=== PATIENT | male | born 1980 | race Two or more races ===

== ENCOUNTER 2024-08-17 10:51 | Emergency (ER) | payer MEDICAID, SELFPAY ==
[2024-08-17 10:55] VITALS: BMI 31.9
[2024-08-17 11:06] VITALS: BP 130/84; PULSE 73; RESP 19; TEMP 36.8; O2SAT 98
--- NOTE | 2024-08-17 11:08 | XR_ITS ---
EXAMINATION: US gall bladder ORDERING PROVIDER: JORGE Moreau HISTORY: ruq pain TECHNIQUE: Multiplanar still ultrasonography of the right upper quadrant was performed using grayscale imaging, supplemented by color and spectral Doppler as needed. COMPARISON: None. FINDINGS: Liver: Mild diffuse increased echogenicity. Gallbladder: 3 mm wall at the upper limits of normal. No pericholecystic fluid. No cholelithiasis. Biliary system: No biliary ductal dilatation. Common bile duct: 0.2 cm. Pancreas: Pancreatic head unremarkable. Vascular: Normal hepatopetal flow in the portal vein. Patent IVC. Other: No ascites or mass. IMPRESSION: 1. Gallbladder wall thickness at the upper limits of normal, but without pericholecystic fluid or cholelithiasis. 2. Mild diffuse increased echogenicity of the liver, nonspecific, but can be seen with hepatic steatosis.
--- NOTE | 2024-08-17 11:09 | EDNOTE_ITS ---
ED Abdominal Pain RME/HPI General Chief Complaint: Abdominal Pain Stated complaint: UPPER ABD PAIN/NAUSEA ON/OFF x 8 DAYS Time seen by provider: 08/17/24 10:57 Arrival date/time: 08/17/24 10:51 43-year-old male with no known medical history presents to the emergency room with a chief complaint of right upper abdominal pain, nausea x 8 days. Source: patient Mode of arrival: ambulatory Limitations: no limitations Related Data Previous Rx's ?Medication ?Instructions ?Recorded ondansetron 4 mg disintegrating 4 mg PO Q8H PRN nausea and 08/17/24 tablet vomiting #14 tabs Allergies Allergy/AdvReac Type Severity Reaction Status Date / Time No Known Allergies Allergy Verified 08/17/24 10:57 Review of Systems Review of Systems Systems Reviewed: All systems reviewed, normal except as documented Constitutional Constitutional: Reports system reviewed and no additional complaints, except as documented, Denies fatigue, Denies fever(s), Denies headache(s) and Denies weakness Eyes Eyes: Reports system reviewed and no additional complaints, except as documented, Denies blurry vision and Denies change in vision ENT Ears, Nose, Mouth, and Throat: Reports system reviewed and no additional complaints, except as documented, Denies otalgia, Denies headache(s), Denies nasal congestion, Denies throat swelling and Denies vertigo Cardiovascular Cardiovascular: Reports system reviewed and no additional complaints, except as documented, Denies chest pain, Denies dyspnea and Denies dyspnea on exertion Respiratory Respiratory: Reports system reviewed and no additional complaints, except as documented, Denies chest congestion, Denies cough, Denies dyspnea, Denies dyspnea on exertion and Denies wheezing Gastrointestinal Gastrointestinal: Reports system reviewed and no additional complaints, except as documented, Reports abdominal pain, Reports cramping, Reports nausea and Reports vomiting Genitourinary Genitourinary: Reports system reviewed and no additional complaints, except as documented, Denies dysuria and Denies hematuria Musculoskeletal Musculoskeletal: Reports system reviewed and no additional complaints, except as documented and Denies back pain Integumentary/Breasts Skin/Breast: Reports system reviewed and no additional complaints, except as documented and Denies wounds Neurologic Neurologic: Reports system reviewed and no additional complaints, except as documented, Denies confusion, Denies headache(s), Denies lack of coordination, Denies vertigo and Denies weakness Psychiatric Psychiatric: Reports system reviewed and no additional complaints, except as documented, Denies anxiety, Denies confusion, Denies depression, Denies paranoia, Denies suicidal ideation and Denies tactile hallucinations Endocrine Endocrine: Reports system reviewed and no additional complaints, except as documented and Denies fatigue Hematologic/Lymphatic Hematologic/Lymphatic: Reports system reviewed and no additional complaints, except as documented and Denies lymphadenopathy Allergic/Immunologic Allergic/Immunologic: Reports system reviewed and no additional complaints, except as documented, Denies throat swelling, Denies urticaria and Denies wheezing Past Medical History Social History SMOKING STATUS: Never smoker ED Exam General Limitations: Present no limitations General appearance: Present alert and in no apparent distress Head Head exam: Present atraumatic Eye Eye exam: Present normal appearance, PERRL and EOMI ENT ENT exam: Present normal exam, normal oropharynx and mucous membranes moist Neck Neck exam: Present normal inspection, full ROM and trachea midline Chest Chest inspection: Present normal inspection and symmetric chest wall rise Respiratory Respiratory exam: Present normal lung sounds bilaterally; Absent respiratory distress, wheezes, stridor, accessory muscle use or prolonged expiratory phase Cardiovascular Cardiovascular exam: Present regular rate, normal rhythm and normal heart sounds Abdominal Exam Abdominal exam: Present soft, tenderness and normal bowel sounds; Absent Colon's sign Abdominal tenderness: Present RUQ, epigastrium and mild Extremities Exam Extremities exam: Present normal inspection and full ROM Back Exam Back exam: Present normal inspection and full ROM Neurological Exam Neurological exam: Present alert, oriented X3 and CN II-XII intact Psychiatric Psychiatric exam: Present normal affect and normal mood Skin Skin exam: Present warm, dry, intact and normal color Course Quality Measures none Orders Category Date Time Status US gall bladder Stat Exams 08/17/24 11:08 Completed CBC Stat Lab 08/17/24 11:20 Completed CMP [Comprehensive Metabolic Panel] Stat Lab 08/17/24 11:20 Completed Lipase Stat Lab 08/17/24 11:20 Completed UA [Urinalysis] Stat Lab 08/17/24 11:15 Completed Urine Culture Stat Lab 08/17/24 11:15 Received HYDROcodone*/APAP 5/325 [[place] 5/325] Med 08/17/24 11:09 Discontinued 1 tab PO X1 ONE Ondansetron Odt [Zofran Odt] Med 08/17/24 11:09 Discontinued 4 mg PO X1 ONE Vital Signs Vital signs: Vital Signs Temperature 98.3 F 08/17/24 11:06 Pulse Rate 73 08/17/24 11:06 Respiratory Rate 19 08/17/24 11:06 Blood Pressure 130/84 08/17/24 11:06 Pulse Oximetry (%) 98 08/17/24 11:06 Oxygen Delivery Method Room Air 08/17/24 11:06 O2 saturation 98% within normal limits Abdominal Pain MDM MDM Narrative MDM Narrative:: 43-year-old male with no known medical history presents to the emergency room with a chief complaint of right upper abdominal pain, nausea x 8 days. Patient is hemodynamically stable and in no apparent distress. Patient is afebrile not tachycardic and not tachypneic. Patient has a soft nontender lower abdominal area. Patient does have some 6 out of 10 abdominal tenderness to the right upper quadrant. The patient has a negative Colon sign. Ultrasound of the gallbladder was completed and was negative for any cholelithiasis or cholecystitis. CBC CMP were negative for any leukocytosis. UA was negative for urinary tract infection Patient was discharged and educated to follow-up with primary care provider and return to the emergency room for any evidence of worsening signs or symptoms Patient data External records reviewed:: [facility] previous records Clinical information provided by:: patient Social determinants that could affect healthcare access:: none Patient has the following chronic illnesses:: No chronic illness How is presenting disease/condition affected by chronic disease/condition?: no chronic disease Evaluation data The following diagnostics were reviewed and interpreted by me:: lab results and radiology exam(s) Lab and/or radiology exams considered but not ordered:: Labs and radiology exams considered and ordered Interpretation Summary: Ultrasound gallbladder-FINDINGS: Liver: Mild diffuse increased echogenicity. Gallbladder: 3 mm wall at the upper limits of normal. No pericholecystic fluid. No cholelithiasis. Biliary system: No biliary ductal dilatation. Common bile duct: 0.2 cm. Pancreas: Pancreatic head unremarkable. Vascular: Normal hepatopetal flow in the portal vein. Patent IVC. Other: No ascites or mass. IMPRESSION: 1. Gallbladder wall thickness at the upper limits of normal, but without pericholecystic fluid or cholelithiasis. 2. Mild diffuse increased echogenicity of the liver, nonspecific, but can be seen with hepatic steatosis. Medications / Prescriptions Medications or Prescriptions considered but not ordered:: Medication given Medication administrations:: Medication Administration History Discontinued Medications Hydrocodone Bitart/Acetaminophen (Hydrocodone/Apap 5/325 Tablet) 1 tab PO X1 ONE Stop: 08/17/24 11:10 Last Admin: 08/17/24 11:33 Dose: 1 tab Documented By: LEXIS Ondansetron HCl (Ondansetron Odt 4 Mg Tabrap) 4 mg PO X1 ONE; Protocol Stop: 08/17/24 11:10 Last Admin: 08/17/24 11:33 Dose: 4 mg Documented By: LEXIS Medication given Consultations Consultation(s) initiated? (list below): No Diagnosis Differential diagnosis abdominal pain: abdominal pain, acute appendicitis, constipation, diverticulitis, gastroenteritis, small bowel obstruction and other (Cholelithiasis/cholecystitis) Most likely diagnosis given after review of the tests above:: Gastroenteritis Admission Indicated Admission indicated?: not indicated Admission Request Was there a request for admission?: No Disposition Plan Disposition Plan: Discharge Discharge Attestation Discharge Attestation: The patient and all family members were given an opportunity to ask questions and understood the discharge instructions. Discharge instructions specifically effects, indications for sooner follow up or return to the emergency department, and the expected course of current diagnosis. Patient condition: Stable Discharge Plan Plan Patient Disposition: HOME (Self Care) Disposition Comment: Stable Prescriptions/Referrals Prescriptions/Med Rec: New ondansetron 4 mg tablet,disintegrating 4 mg PO Q8H PRN (Reason: nausea and vomiting) Qty: 14 0RF Referrals: Yasmin Dominguez PA-C [Primary Care Provider] - In 1 week Problem List Clinical Impression: Gastroenteritis Patient/Caregiver Discharge Instructions Education Materials: ED Gastroenteritis, Noninfectious Additional Instructions: Por favor, consulte con willson m?dico de cabecera en las pr?ximas 24 a 48 horas. Willson an?lisis de man fue negativo para cualquier hallazgo drea. Willson an?lisis de orina fue negativo para cualquier hallazgo drea. Se realiz? marty tomograf?a computarizada de willson abdomen y pelvis y fue negativa para cualquier hallazgo drea. Willson m?dico de cabecera est? haciendo un seguimiento con willson m?dico de cabecera para realizar m?s pruebas para encontrar la causa de willson dolor abdominal. Si hay evidencia de empeoramiento de los signos o s?ntomas, regrese a la miladis de emergencias de inmediato. Print Language: Samoan Stand Alone Forms: Beatriz Award Info., Patient Portal Info Letter PA/DROPHAMMER OPERATOR Supervising Physician PA/DROPHAMMER OPERATOR Supervising Physician: Dr. Amaya
[2024-08-17 11:29] LABS: Collection Type, Urine Clean Catch; Squamous Epithelial Cell,Urine 0 /hpf (0-5)
[2024-08-17] MEDS: ONDANSETRON ODT 4 MG TABRAP PO (11:33)
[2024-08-17] MEDS: HYDROcodone/APAP 5/325 TABLET 1 TAB PO (11:33)
[2024-08-17 11:46] LABS: Basophils % (Auto) 1 % (0-2.5); Eosinophils % (Auto) 0 % (0-10); Hematocrit 43.8 % (41.0-53.0); Hemoglobin 15.4 g/dL (13.5-16.0); Immature Granulocytes % (Auto) 0 % (0-0); Lymphocytes # (Auto) 1.7 Thou/mm3 (1.0-4.8); Lymphocytes % (Auto) 28 % (10-50); Mean Corpuscular HGB Conc 35.2 g/dl (31.0-37.0); Mean Corpuscular Hemoglobin 29.6 pg (25.0-35.0); Mean Corpuscular Volume 84 fL (80-100); Monocytes # (Auto) 0.3 Thou/mm3 (0.0-0.8); Monocytes % (Auto) 5 % (0-12); Neutrophils % (Auto) 66 % (37-80); Nucleated Red Blood Cell % 0 /100 WBC (0); Platelet Count 218 Thou/mm3 (140-440); RDW Standard Deviation 35.8 fL (35.1-43.9)
[2024-08-17 11:47] LABS: Bilirubin,Urine Negative (Negative); Blood,Urine Negative (Negative); Clarity,Urine Clear (Clear/Hazy); Color,Urine Colorless (Lt Yel-Yel); Glucose, Urine Negative (Negative); Ketones,Urine Negative (Negative); Leukocyte Esterase,Urine Negative (Negative); Nitrite,Urine Negative (Negative); PH,Urine 7.5 (5.0-7.0); Protein,Urine Negative (Neg - Trace); RBC,Urine < 1 /hpf (0-3); Specific Gravity,Urine 1.007 (1.001-1.035); Urobilinogen,Urine Negative mg/dL (0.0-1.0); WBC,Urine < 1 /hpf (0-5)
[2024-08-17 11:59] LABS: Alanine Aminotransferase 19 U/L (10-49); Albumin, Serum 4.7 gm/dL (3.5-5.0); Albumin/Globulin Ratio 1.5 (1.2-2.2); Alkaline Phosphatase 95 U/L (46-116); Anion Gap 5 (7-16); Aspartate Amino Transferase 19 U/L (0-34); BUN/Creatinine Ratio 10 Ratio (12-20); Bilirubin,Total 1.2 mg/dL (0.3-1.2); Blood Urea Nitrogen 8 mg/dL (9-23); Calcium 9.5 mg/dL (8.3-10.6); Calcium (Corrected) 9.5 mg/dL (8.5-10.1); Carbon Dioxide 30.6 mMol/L (20.0-31.0); Chloride 105 mMol/L (98-107); Creatinine (Component) 0.8 mg/dL (0.6-1.3); Estimated Creatinine Clearance 122.4 mL/min (>60); Globulin 3.2 gm/dL (2.3-3.5); Glucose 94 mg/dL (74-106); Lipase 39 U/L (12-53); Osmolality,Calculated 279 (275-295); Potassium 4.3 mMol/L (3.4-5.1); Sodium 141 mMol/L (136-145); Total Protein 7.9 gm/dL (5.7-8.2); eGFR > 60 See Note
== END 2024-08-17 13:23 | disposition home or self-care (01) ==
PROVIDERS: Nurse Practitioner Family; Emergency Provider Emergency Medicine
DX: K52.9 Noninfective gastroenteritis and colitis, unspecified (principal)
CPT/HCPCS: 36415; 76705; 80053; 81001; 83690; 85025; 87086; 99284; Q0162; A9270

== ENCOUNTER 2024-09-14 10:03 | Emergency (ER) | payer MEDICAID, SELFPAY ==
[2024-09-14 10:04] VITALS: BMI 31.9
[2024-09-14 10:19] VITALS: BP 124/78; PULSE 79; RESP 16; TEMP 37.1; O2SAT 98
--- NOTE | 2024-09-14 10:22 | PD.EDRME ---
Rapid Medical Screening Exam RME Arrival date/time: 09/14/24 10:03 43-year-old male with no known medical history presents to the emergency room with a chief complaint of right lower quadrant 8 out of 10 abdominal pain, vomiting, diarrhea x 3 days I have greeted and performed a focused initial assessment of this patient. A comprehensive ED assessment and evaluation of the patient, analysis of all test results, and completion of the medical decision making process will be conducted by additional ED providers. Chief Complaint: Abdominal Pain Time Seen by Provider: 09/14/24 10:15 Vital signs: Vital Signs Temperature 98.8 F 09/14/24 10:19 Pulse Rate 79 09/14/24 10:19 Respiratory Rate 16 09/14/24 10:19 Blood Pressure 124/78 09/14/24 10:19 Pulse Oximetry (%) 98 09/14/24 10:19 Oxygen Delivery Method Room Air 09/14/24 10:19 Vital signs reviewed by provider: Yes
--- NOTE | 2024-09-14 10:26 | XR_ITS ---
Examination: Abdomen sonogram, Limited Date and time of exam: September 14, 2024 at 1133 hours INDICATIONS: Right lower abdominal pain today Technique: Real-time trimble scale transabdominal sonographic images of the lower abdomen obtained. Findings: No sonographic visualization appendix IMPRESSION: No sonographic visualization appendix
[2024-09-14 11:18] LABS: Basophils # (Auto) 0.1 Thou/mm3 (0.0-0.2); Basophils % (Auto) 1 % (0-2.5); Eosinophils % (Auto) 0 % (0-10); Hematocrit 42.4 % (41.0-53.0); Hemoglobin 14.9 g/dL (13.5-16.0); Immature Granulocytes % (Auto) 0 % (0-0); Immature Granulocytes Auto 0.01 Thou/mm3 (0.00-0.00); Lymphocytes % (Auto) 33 % (10-50); Mean Corpuscular HGB Conc 35.1 g/dl (31.0-37.0); Mean Corpuscular Volume 83 fL (80-100); Monocytes # (Auto) 0.2 Thou/mm3 (0.0-0.8); Monocytes % (Auto) 4 % (0-12); Neutrophils # (Auto) 3.6 Thou/mm3 (1.8-7.7); Neutrophils % (Auto) 61 % (37-80); Nucleated Red Blood Cell % 0 /100 WBC (0); Platelet Count 233 Thou/mm3 (140-440); RDW Standard Deviation 34.9 fL (35.1-43.9); Red Blood Count 5.13 Miln/mm3 (4.50-5.90); White Blood Count 5.9 Thou/mm3 (3.8-10.6)
[2024-09-14 11:40] LABS: Alanine Aminotransferase 20 U/L (10-49); Albumin, Serum 4.5 gm/dL (3.5-5.0); Albumin/Globulin Ratio 1.4 (1.2-2.2); Alkaline Phosphatase 93 U/L (46-116); Anion Gap 9 (7-16); Aspartate Amino Transferase 22 U/L (0-34); BUN/Creatinine Ratio 9 Ratio (12-20); Bilirubin,Total 1.7 mg/dL (0.3-1.2); Blood Urea Nitrogen 7 mg/dL (9-23); Calcium 9.7 mg/dL (8.3-10.6); Calcium (Corrected) 9.7 mg/dL (8.5-10.1); Carbon Dioxide 27.9 mMol/L (20.0-31.0); Chloride 104 mMol/L (98-107); Creatinine (Component) 0.8 mg/dL (0.6-1.3); Estimated Creatinine Clearance 122.4 mL/min (>60); Globulin 3.3 gm/dL (2.3-3.5); Glucose 93 mg/dL (74-106); Lipase 31 U/L (12-53); Osmolality,Calculated 279 (275-295); Potassium 3.7 mMol/L (3.4-5.1); Sodium 141 mMol/L (136-145); Total Protein 7.8 gm/dL (5.7-8.2); eGFR > 60 See Note
[2024-09-14 11:53] LABS: Collection Type, Urine Clean Catch; Squamous Epithelial Cell,Urine 0 /hpf (0-5)
[2024-09-14 12:01] LABS: Bilirubin,Urine Negative (Negative); Blood,Urine Negative (Negative); Clarity,Urine Clear (Clear/Hazy); Color,Urine Colorless (Lt Yel-Yel); Glucose, Urine Negative (Negative); Ketones,Urine Negative (Negative); Leukocyte Esterase,Urine Negative (Negative); Nitrite,Urine Negative (Negative); PH,Urine 6.5 (5.0-7.0); Protein,Urine Negative (Neg - Trace); RBC,Urine < 1 /hpf (0-3); Specific Gravity,Urine 1.006 (1.001-1.035); Urobilinogen,Urine Negative mg/dL (0.0-1.0); WBC,Urine < 1 /hpf (0-5)
[2024-09-14 13:28] VITALS: BP 126/80; PULSE 67; RESP 18; TEMP 36.7; O2SAT 98
[2024-09-14] MEDS: KETOROLAC INJ 60 MG/2 ML VIAL 30 MG IM (13:32)
[2024-09-14] MEDS: ONDANSETRON ODT 4 MG TABRAP PO (13:32)
--- NOTE | 2024-09-21 08:15 | EDNOTE_ITS ---
<Statement entered by Jo Jones MD - 09/21/24 15:16> As co-signing physician, I was present and available for consult prn. I concur with the plan and care as documented by the midlevel provider. ED Abdominal Pain RME/HPI General Chief Complaint: Abdominal Pain Stated complaint: RLQ PAIN SINCE YESTERDAY Time seen by provider: 09/14/24 10:15 Arrival date/time: 09/14/24 10:03 43-year-old male with no known medical history presents to the emergency room with a chief complaint of right lower quadrant 8 out of 10 abdominal pain, vomiting, diarrhea x 3 days Source: patient Mode of arrival: ambulatory Limitations: no limitations RME / HPI RME / HPI narrative: 09/14/24 10:03 43-year-old male with no known medical history presents to the emergency room with a chief complaint of right lower quadrant 8 out of 10 abdominal pain, vomiting, diarrhea x 3 days I have greeted and performed a focused initial assessment of this patient. A comprehensive ED assessment and evaluation of the patient, analysis of all test results, and completion of the medical decision making process will be conducted by additional ED providers. Related Data Previous Rx's ?Medication ?Instructions ?Recorded ondansetron 4 mg disintegrating 4 mg PO Q8H PRN nausea and 08/17/24 tablet vomiting #14 tabs omeprazole 40 mg capsule,delayed 40 mg PO QDAY #14 cap s 09/14/24 release Allergies Allergy/AdvReac Type Severity Reaction Status Date / Time No Known Allergies Allergy Verified 09/14/24 10:04 Review of Systems Review of Systems Systems Reviewed: All systems reviewed, normal except as documented Constitutional Constitutional: Reports system reviewed and no additional complaints, except as documented, Denies fatigue, Denies fever(s), Denies headache(s) and Denies weakness Eyes Eyes: Reports system reviewed and no additional complaints, except as documented, Denies blurry vision and Denies change in vision ENT Ears, Nose, Mouth, and Throat: Reports system reviewed and no additional complaints, except as documented, Denies otalgia, Denies headache(s), Denies nasal congestion, Denies throat swelling and Denies vertigo Cardiovascular Cardiovascular: Reports system reviewed and no additional complaints, except as documented, Denies chest pain, Denies dyspnea and Denies dyspnea on exertion Respiratory Respiratory: Reports system reviewed and no additional complaints, except as documented, Denies chest congestion, Denies cough, Denies dyspnea, Denies dyspnea on exertion and Denies wheezing Gastrointestinal Gastrointestinal: Reports system reviewed and no additional complaints, except as documented, Reports abdominal pain, Reports cramping, Reports nausea and Reports vomiting Genitourinary Genitourinary: Reports system reviewed and no additional complaints, except as documented, Denies dysuria and Denies hematuria Musculoskeletal Musculoskeletal: Reports system reviewed and no additional complaints, except as documented and Denies back pain Integumentary/Breasts Skin/Breast: Reports system reviewed and no additional complaints, except as documented and Denies wounds Neurologic Neurologic: Reports system reviewed and no additional complaints, except as documented, Denies confusion, Denies headache(s), Denies lack of coordination, Denies vertigo and Denies weakness Psychiatric Psychiatric: Reports system reviewed and no additional complaints, except as documented, Denies anxiety, Denies confusion, Denies depression, Denies paranoia, Denies suicidal ideation and Denies tactile hallucinations Endocrine Endocrine: Reports system reviewed and no additional complaints, except as documented and Denies fatigue Hematologic/Lymphatic Hematologic/Lymphatic: Reports system reviewed and no additional complaints, except as documented and Denies lymphadenopathy Allergic/Immunologic Allergic/Immunologic: Reports system reviewed and no additional complaints, except as documented, Denies throat swelling, Denies urticaria and Denies wheezing Past Medical History Social History SMOKING STATUS: Never smoker ED Exam General Limitations: Present no limitations General appearance: Present alert and in no apparent distress Head Head exam: Present atraumatic Eye Eye exam: Present normal appearance, PERRL and EOMI ENT ENT exam: Present normal exam, normal oropharynx and mucous membranes moist Neck Neck exam: Present normal inspection, full ROM and trachea midline Chest Chest inspection: Present normal inspection and symmetric chest wall rise Respiratory Respiratory exam: Present normal lung sounds bilaterally Cardiovascular Cardiovascular exam: Present regular rate, normal rhythm and normal heart sounds Abdominal Exam Abdominal exam: Present soft, tenderness and normal bowel sounds; Absent Colon's sign or tenderness at McBurney's Point Abdominal tenderness: Present RLQ and moderate Extremities Exam Extremities exam: Present normal inspection and full ROM Back Exam Back exam: Present normal inspection and full ROM Neurological Exam Neurological exam: Present alert, oriented X3 and CN II-XII intact Psychiatric Psychiatric exam: Present normal affect and normal mood Skin Skin exam: Present warm, dry, intact and normal color Course Quality Measures none Orders Category Date Time Status US abdomen limited Stat Exams 09/14/24 10:26 Completed CBC Stat Lab 09/14/24 10:25 Completed CMP [Comprehensive Metabolic Panel] Stat Lab 09/14/24 10:25 Completed Lipase Stat Lab 09/14/24 10:25 Completed UA [Urinalysis] Stat Lab 09/14/24 11:10 Completed Urine Culture Stat Lab 09/14/24 11:10 Completed Ketorolac Inj [Toradol Inj] Med 09/14/24 10:21 Discontinued 30 mg IM X1 ONE Ondansetron Odt [Zofran Odt] Med 09/14/24 10:21 Discontinued 4 mg PO X1 ONE Vital Signs Vital signs: Vital Signs Temperature 98.8 F 09/14/24 10:19 Pulse Rate 79 09/14/24 10:19 Respiratory Rate 16 09/14/24 10:19 Blood Pressure 124/78 09/14/24 10:19 Pulse Oximetry (%) 98 09/14/24 10:19 Oxygen Delivery Method Room Air 09/14/24 10:19 O2 saturation 98% within normal limits Abdominal Pain MDM MDM Narrative MDM Narrative:: 43-year-old male with no known medical history presents to the emergency room with a chief complaint of right lower quadrant 8 out of 10 abdominal pain, vomiting, diarrhea x 3 days. Patient is hemodynamically stable and in no apparent distress. Patient is a febrile not tachypneic not tachycardic and O2 saturation is 98% on room air Physical examination shows right lower quadrant abdominal tenderness with palpation. CBC CMP were negative for any acute findings. Ultrasound was completed and was unable to visualize appendix. Due to the patient's negative leukocytosis and decreased pain on reevaluation using the Sin score I discharged the patient with strict return precautions if his symptoms get worse Patient was discharged and educated to follow-up with primary care provider in the next 24 to 48 hours and return to the emergency room for any evidence of worsening signs or symptoms Patient data External records reviewed:: [facility] previous records Clinical information provided by:: patient Social determinants that could affect healthcare access:: none Patient has the following chronic illnesses:: No chronic illness How is presenting disease/condition affected by chronic disease/condition?: no chronic disease Evaluation data The following diagnostics were reviewed and interpreted by me:: lab results and radiology exam(s) Lab and/or radiology exams considered but not ordered:: Labs and radiology exams considered and ordered Interpretation Summary: Ultrasound abdomen-Findings: No sonographic visualization appendix IMPRESSION: No sonographic visualization appendix Medications / Prescriptions Medications or Prescriptions considered but not ordered:: Medication given Medication administrations:: Medication Administration History Discontinued Medications Ketorolac Tromethamine (Ketorolac Inj 60 Mg/2 Ml Vial) 30 mg IM X1 ONE Stop: 09/14/24 10:22 Last Admin: 09/14/24 13:32 Dose: 30 mg Documented By: ER Ondansetron HCl (Ondansetron Odt 4 Mg Tabrap) 4 mg PO X1 ONE; Protocol Stop: 09/14/24 10:22 Last Admin: 09/14/24 13:32 Dose: 4 mg Documented By: ER Medication given Consultations Consultation(s) initiated? (list below): No Diagnosis Differential diagnosis abdominal pain: abdominal pain, acute appendicitis and gastroenteritis Most likely diagnosis given after review of the tests above:: Gastroenteritis Admission Indicated Admission indicated?: not indicated Admission Request Was there a request for admission?: No Disposition Plan Disposition Plan: Discharge Discharge Attestation Discharge Attestation: The patient and all family members were given an opportunity to ask questions and understood the discharge instructions. Discharge instructions specifically effects, indications for sooner follow up or return to the emergency department, and the expected course of current diagnosis. Patient condition: Stable Discharge Plan Plan Patient Disposition: HOME (Self Care) Disposition Comment: Stable Prescriptions/Referrals Prescriptions/Med Rec: New omeprazole 40 mg capsule,delayed release(DR/EC) 40 mg PO QDAY Qty: 14 0RF No Action ondansetron 4 mg tablet,disintegrating 4 mg PO Q8H PRN (Reason: nausea and vomiting) Qty: 14 0RF Referrals: Molly Dominguez FNP [Primary Care Provider] - In 1 week Problem List Clinical Impression: Gastroenteritis Patient/Caregiver Discharge Instructions Education Materials: ED Gastroenteritis, Noninfectious Additional Instructions: Por favor, consulte con pierre m?dico de cabecera en las pr?ximas 24 a 48 horas. La ecograf?a de ap?ndice no mostr? ninguna complicaci?n grave. Celia an?lisis de man y orina se encontraron dentro de los l?mites normales. Si observa cualquier signo de empeoramiento de los signos o s?ntomas, acuda a urgencias de inmediato. Print Language: Syriac Stand Alone Forms: Beatriz Award Info., Patient Portal Info Letter PA/HELP DESK TECHNICIAN Supervising Physician PA/HELP DESK TECHNICIAN Supervising Physician: Dr. jones
== END 2024-09-14 14:04 | disposition home or self-care (01) ==
PROVIDERS: Nurse Practitioner Family; Emergency Provider Emergency Medicine; PCP Nurse Practitioner Family
DX: K52.9 Noninfective gastroenteritis and colitis, unspecified (principal)
CPT/HCPCS: 36415; 76705; 80053; 81001; 83690; 85025; 87086; 96372; 99284; J1885; Q0162